=== PATIENT | male | born 1955 | race Caucasian/White ===

== ENCOUNTER 2018-02-13 23:37 | Emergency (ER) | payer OTHER ==
[2018-02-13] MEDS ORDERED: NITROGLYCERIN 0.4 MG TAB SL PRN (23:42)
[2018-02-13] MEDS ORDERED: ASPIRIN 81 MG CHEWABLE CTB PO STA (23:42)
[2018-02-13] MEDS ORDERED: SODIUM CHLORIDE 0.9% FLUSH 10 ML SOL IV PRN (23:42)
[2018-02-13] MEDS ORDERED: NITROGLYCERIN 0.4 MG TAB SL ONE (23:44)
[2018-02-13] MEDS ORDERED: ASPIRIN 81 MG CHEWABLE CTB ONE (23:44)
[2018-02-13 23:53] VITALS: TEMP 98.4; O2SAT 94
[2018-02-13] MEDS ORDERED: ONDANSETRON HCL 4 MG/2 ML SOL ONE (23:56)
[2018-02-14 00:11] LABS: BASOPHILS % (AUTO) 1 % (0-3); EOSINOPHILS % (AUTO) 3 % (0-9); HEMATOCRIT 48 % (39-53); HEMOGLOBIN 15.8 gm/dl (13.5-17.7); LYMPHOCYTES % (AUTO) 22.3 % (10-50); MEAN CORPUSCULAR HEMOGLOBIN 31.5 pg (27.0-32.0); MEAN CORPUSCULAR HGB CONC 32.8 gm/dl (32.0-36.0); MEAN CORPUSCULAR VOLUME 96 fL (80-100); MONOCYTES % (AUTO) 9.9 % (0-12); NEUTROPHILS % (AUTO) 64.5 % (37-80)
[2018-02-14] MEDS ORDERED: ALBUTEROL/IPRATROPIUM 1 VIAL SOL INH ONE (00:26)
[2018-02-14 00:29] LABS: INR 0.94 (0.86-1.12)
[2018-02-14 00:32] LABS: CARBON DIOXIDE 25.6 mEq/L (21-32); POTASSIUM 3.8 mMol/L (3.5-5.1); TROP I 0.077 ng/ml (0.000-0.056)
[2018-02-14] MEDS ORDERED: SOLUMEDROL 125 MG/2 ML 125 MG/2 ML PDS IV ONE (01:16)
[2018-02-14] MEDS ORDERED: SOLUMEDROL 125 MG/2 ML 125 MG/2 ML PDS ONE (01:18)
[2018-02-14] MEDS ORDERED: ALBUTEROL/IPRATROPIUM 1 VIAL SOL ONE (01:19)
[2018-02-14 01:26] VITALS: PULSE 81; RESP 20
[2018-02-14 01:46] VITALS: BP 132/82
== END 2018-02-14 01:37 | disposition home or self-care (01) | DRG 192 ==
LOC: ED 23:37
DX: J44.1 Chronic obstructive pulmonary disease with (acute) exacerbation (principal); F17.200 Nicotine dependence, unspecified, uncomplicated
CPT/HCPCS: 36415; 71045; 80048; 82550; 83880; 84484; 85025; 85610; 85730; 93005; 96374; 99284; 99285; J2405; J2930; A9270-GY